=== PATIENT | female | born 1990 | race Caucasian/White ===

== ENCOUNTER 2018-12-05 19:00 | Emergency (ER) | payer OTHER ==
[~2018-12-05] VITALS: Ht 162.6 cm; Wt 81.8 kg
[~2018-12-05 19:00] MED LIST: CIPR500T4 PO; PREN1TAB62 PO
[2018-12-05 19:06] VITALS: Ht 162.6 cm; Wt 81.8 kg
[2018-12-05] MEDS ORDERED: SOD CHLORIDE 0.9% 1,000 ML IV STA (20:07)
--- NOTE | 2018-12-05 20:10 | ERD ---
ER Documentation Chief Complaint Chief Complaint near syncopal episode. 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 Patient does admit to heavy drinking and was drinking today. Per her parents at bedside, they found her on the ground next to her bed. This was witnessed by the patient's son, who alerted her parents. They were able to wake her up. She was not postictal afterwards but generally weak. Patient denies feeling any chest pain, shortness of breath, headache, dizziness, nausea, or vomiting. No recent illnesses. She does state that she has been very stressed lately and has "a lot on my shoulders". No history of syncope. ROS All systems reviewed and are negative except as per history of present illness. Medications Home Meds Reported Medications [Unkown Diabetis Rx] No Conflict Check 12/05/18 Discontinued Reported Medications Vit-Iron Fumarate-FA ( Vitamin Tablet) 1 Each Tablet, 1 TAB PO AM, TAB 08/17/14 Vit-Iron Fumarate-FA ( Vitamin Tablet) 1 Each Tablet, 1 TAB PO DAILY, TAB 07/13/14 Discontinued Scripts Ciprofloxacin Hcl* (Ciprofloxacin Hcl*) 500 Mg Tablet, 500 MG PO BID for 10 Days, TAB Prov:MARY MOFFETT PA-C 09/11/15 Allergies Allergies: Coded Allergies: No Known Allergy (Unverified , 08/17/14) PMhx/Soc Hx Miscellaneous Medical Probl: Yes (DM) Hx Alcohol Use: No Hx Substance Use: No Hx Tobacco Use: No Smoking Status: Never smoker FmHx Family History: No diabetes Physical Exam Vitals Vital Signs Date Temp Pulse Resp B/P (MAP) Pulse Ox O2 O2 Flow FiO2 Time Delivery Rate 12/05/18 98 16 134/86 99 Room Air 22:41 (102) 12/05/18 115 16 135/72 Room Air 20:49 (93) 12/05/18 97.4 112 16 142/83 99 Mask 4.0 19:19 (102) 12/05/18 98.1 120 20 142/93 94 19:06 (109) Physical Exam Const: No acute distress Head: Atraumatic Eyes: Normal Conjunctiva, PERRLA, EOMI ENT: Normal External Ears, Nose and Mouth. No intraoral injury Neck: Full range of motion. No meningismus. Resp: Clear to auscultation bilaterally Cardio: tachycardic with regular rhythm, no murmurs. 2+ distal pulses in all 4 extremities Abd: Soft, non tender, non distended. Normal bowel sounds Skin: No petechiae or rashes Back: No midline or flank tenderness Ext: No cyanosis, or edema Neur: Awake and alert, oriented x3, cranial nerves intact, strength and sensations intact in all 4 extremities. Normal balance. Normal gait. Psych: Normal Mood and Affect Result Diagram: 12/05/18199912/05/181999 Results 24 hrs Laboratory Tests Test 12/05/18 20:00 12/05/18 20:23 12/05/18 20:25 12/05/18 21:04 White Blood Count 8.2 10^3/ul Red Blood Count 4.66 10^6/ul Hemoglobin 12.2 g/dl Hematocrit 36.5 % Mean Corpuscular 78.3 fl Volume Mean Corpuscular 26.2 pg Hemoglobin Mean Corpuscular 33.4 g/dl Hemoglobin Concent Red Cell Distribution 16.4 % Width Platelet Count 262 10^3/UL Mean Platelet Volume 11.4 fl Immature Granulocytes 0.100 % % Neutrophils % 41.2 % Lymphocytes % 48.7 % Monocytes % 6.7 % Eosinophils % 2.1 % Basophils % 1.2 % Nucleated Red Blood 0.0 /100WBC Cells % Immature Granulocytes 0.010 10^3/ul # Neutrophils # 3.4 10^3/ul Lymphocytes # 4.0 10^3/ul Monocytes # 0.6 10^3/ul Eosinophils # 0.2 10^3/ul Basophils # 0.1 10^3/ul Nucleated Red Blood 0.0 10^3/ul Cells # Sodium Level 147 mmol/L Potassium Level 4.3 mmol/L Chloride Level 109 mmol/L Carbon Dioxide Level 24 mmol/L Anion Gap 14 Blood Urea Nitrogen 7 mg/dl Creatinine 0.84 mg/dl Est Glomerular > 60 mL/min Filtrat Rate mL/min Glucose Level 108 mg/dl Calcium Level 8.7 mg/dl POC Beta HCG, NEGATIVE Qualitative Bedside Glucose 99 mg/dL Bedside Urine pH 5.0 (LAB) Bedside Urine Protein Negative (LAB) Bedside Urine Glucose Negative (UA) Bedside Urine Ketones Negative (LAB) Bedside Urine Blood Trace-intact Bedside Urine Nitrite Negative (LAB) Bedside Urine Negative Leukocyte Esterase (L Current Medications Medications Dose Sig/Nick Start Time Status Last (Trade) Ordered Route PRN Stop Time Admin Dose Reason Admin Sodium 1,000 ml @ Q1H STAT 12/05/18 DC 12/05/18 Chloride 1,000 mls/hr IV 20:07 12/05/18 20:19 21:06 Procedures/MDM EMERGENT LABS AND DIAGNOSTIC STUDIES: Lab Results above were reviewed and interpreted by me. CBC: no anemia or evidence of infection CMP: Hypernatremia, likely secondary to dehydration. No evidence of other electrolyte abnormality, renal failure, hypoglycemia negative Urine dip with trace blood only, no evidence of infection or ketosis 12-lead EKG was interpreted by Nena Larose MD: Sinus tachycardia at 117 bpm Normal axis Normal intervals No acute ST or T wave changes suggestive of acute ischemia or STEMI. Radiology Results as interpreted by Radiology below were reviewed by Tre Larose MD: Chest x-ray shows no acute abnormalities Initial Nursing notes reviewed. Previous Medical Records requested via the Electronic Health Record. EMERGENCY DEPARTMENT COURSE / MEDICAL DECISION MAKING: The patients vitals are within normal limits and labs are unremarkable. The ECG did not show any concerning abnormalities. I have a low suspicion for an arrhythmia, acute coronary syndrome, PE or a CVA or intracranial hemorrhage. There was evidence of dehydration and her labs with hypernatremia. This in addition to her alcohol intoxication would be a possible explanation for her syncopal episode. At this moment, etiology for syncope is unknown but likely benign. Patient's syncopal symptoms have stabilized while in the department and are suitable for outpatient follow up. I advised follow up with primary care physician in 1-2 days. Return precautions were discussed at bedside. Patient's blood pressure was elevated (>120/80) but appears stable without evidence of hypertensive emergency or urgency. The patient was counseled about the risks of hypertension and urged to pursue outpatient monitoring and therapy within a week with their primary care physician. Departure Diagnosis: Primary Impression: Syncope Syncope type: unspecified Qualified Codes: R55 - Syncope and collapse Additional Impression: Alcohol intoxication Complication of substance-induced condition: uncomplicated Qualified Codes: F10.920 - Alcohol use, unspecified with intoxication, uncomplicated Condition: Stable JULIAN LAROSE MD Dec 05, 2018 20:10
[2018-12-05] MEDS ORDERED: [UNRECOGNIZED DRUG - REMARK] (21:44)
[2018-12-05 22:41] VITALS: BP 134/86; PULSE 98; RESP 16
== END 2018-12-05 22:42 | disposition home or self-care (01) ==
LOC: E/R 19:00
DX: R55 Syncope and collapse (principal); F10.920 Alcohol use, unspecified with intoxication, uncomplicated; E11.9 Type 2 diabetes mellitus without complications
CPT/HCPCS: 71045; 80048; 81003; 81025; 82962; 85025; J7030; 36415; 93005; 96360; 96361

== ENCOUNTER 2018-12-25 14:46 | Emergency (ER) | payer OTHER ==
[~2018-12-25] VITALS: Ht 160 cm; Wt 100.0 kg
[~2018-12-25 14:46] MED LIST changes: -CIPR500T4 PO; -PREN1TAB62 PO; +[UNRECOGNIZED DRUG - REMARK]
[2018-12-25] MEDS ORDERED: SOD CHLORIDE 0.9% 500 ML IV STA (14:57)
[2018-12-25] MEDS ORDERED: ONDANSETRON 4 MG INJ IV STA (14:57)
--- NOTE | 2018-12-25 15:03 | ERD ---
ER Documentation Chief Complaint Chief Complaint HPI This is a 28-year-old woman with a history of leukemia since she was 14 years ol d, previously treated, brought to the ED for questionable syncopal episode and momentary unresponsiveness while in the ED waiting room. She had a very similar episode in this ED about 3 weeks ago and was found to be intoxicated, she does have a long history of alcohol intoxication and alcohol abuse. Patient admits to drinking heavily today. She states she has a history of seizure disorder but does not take any medications. She denies seizure activity today, she had no tongue injury or tongue biting, no loss of bowel or bladder control, no recent fevers or chills. Patient denies chest pain or shortness of breath, no blood per rectum or melena, no weight loss. ROS All systems reviewed and are negative except as per history of present illness. Medications Home Meds Active Scripts Levetiracetam* (Keppra*) 500 Mg Tablet, 500 MG PO BID, #60 TAB Prov:CHAN DARNELL MD 12/25/18 Discontinued Reported Medications [Unkown Diabetis Rx] No Conflict Check 12/05/18 Allergies Allergies: Coded Allergies: No Known Allergy (Unverified , 12/25/18) PMhx/Soc Hx Miscellaneous Medical Probl: Yes (DM) Hx Alcohol Use: No Hx Substance Use: No Hx Tobacco Use: No FmHx Family History: No diabetes Physical Exam Vitals Vital Signs Date Temp Pulse Resp B/P (MAP) Pulse Ox O2 O2 Flow FiO2 Time Delivery Rate 12/25/18 85 21 94/55 (68) 99 Room Air 18:53 12/25/18 98.3 83 18 99/63 (75) 99 Nasal 2.0 17:26 Cannula 12/25/18 98.4 87 18 115/72 100 15:08 (86) Per nurse's records Physical Exam GENERAL: Well-developed, well-nourished, appears intoxicated with alcohol on breath, afebrile HEENT: Moist mucous membranes, pink conjunctiva, no cervical spine tenderness, no goiter NEURO: Alert and oriented 3, cranial nerves II through XII intact bilaterally, pupils equal round reactive to light, able to ambulate CARDIAC: Regular rate and rhythm, no murmurs rubs or gallops LUNGS: Clear bilaterally no wheezing crackles or stridor ABDOMEN: Soft nontender, no guarding, no rigidity, no rebound, no psoas sign no obturator sign. SKIN: Warm and dry to touch, no abrasions, contusions, or hematomas, no lacerations, no ecchymosis, no target lesions, and without ulcers EXTREMITIES: No clubbing cyanosis or edema, calves are bilaterally symmetrical, no Homans sign, no popliteal cord sign. Distal pulses equal and bilateral PSYCH: Agitated Result Diagram: 12/25/18 1500 12/25/18 1500 Results 24 hrs Laboratory Tests Test 12/25/18 15:00 12/25/18 15:08 12/25/18 15:11 White Blood Count 7.5 10^3/ul Red Blood Count 4.99 10^6/ul Hemoglobin 13.0 g/dl Hematocrit 39.0 % Mean Corpuscular Volume 78.2 fl Mean Corpuscular Hemoglobin 26.1 pg Mean Corpuscular 33.3 g/dl Hemoglobin Concent Red Cell Distribution Width 15.7 % Platelet Count 280 10^3/UL Mean Platelet Volume 10.5 fl Immature Granulocytes % 0.400 % Neutrophils % 48.1 % Lymphocytes % 43.9 % Monocytes % 4.5 % Eosinophils % 1.9 % Basophils % 1.2 % Nucleated Red Blood Cells % 0.0 /100WBC Immature Granulocytes # 0.030 10^3/ul Neutrophils # 3.6 10^3/ul Lymphocytes # 3.3 10^3/ul Monocytes # 0.3 10^3/ul Eosinophils # 0.1 10^3/ul Basophils # 0.1 10^3/ul Nucleated Red Blood Cells # 0.0 10^3/ul Sodium Level 148 mmol/L Potassium Level 3.6 mmol/L Chloride Level 112 mmol/L Carbon Dioxide Level 21 mmol/L Anion Gap 15 Blood Urea Nitrogen 6 mg/dl Creatinine 0.60 mg/dl Est Glomerular Filtrat > 60 mL/min Rate mL/min Glucose Level 128 mg/dl Calcium Level 8.8 mg/dl Total Bilirubin 0.2 mg/dl Direct Bilirubin 0.00 mg/dl Indirect Bilirubin 0.2 mg/dl Aspartate Amino 96 IU/L Transf (AST/SGOT) Alanine 92 IU/L Aminotransferase (ALT/SGPT) Alkaline Phosphatase 143 IU/L Total Protein 9.1 g/dl Albumin 4.6 g/dl Globulin 4.50 g/dl Albumin/Globulin Ratio 1.02 Salicylates Level < 1.0 mg/dl Acetaminophen Level < 10.0 ug/ml Ethyl Alcohol Level 378.0 mg/dl Urine Color STRAW Urine Clarity CLEAR Urine pH 6.0 Urine Specific [place] 1.002 Urine Ketones NEGATIVE mg/dL Urine Nitrite NEGATIVE mg/dL Urine Bilirubin NEGATIVE mg/dL Urine Urobilinogen NEGATIVE mg/dL Urine Leukocyte Esterase NEGATIVE Gianna/ul Urine Microscopic RBC 0 /HPF Urine Microscopic WBC 0 /HPF Urine Bacteria FEW /HPF Urine Hemoglobin 1+ mg/dL Urine Glucose NEGATIVE mg/dL Urine Total Protein NEGATIVE mg/dl Urine Opiates Screen Negative Urine Barbiturates Negative Urine Amphetamines Screen Negative Urine Benzodiazepines Screen Negative Urine Cocaine Screen Negative Urine Cannabinoids Negative POC Beta HCG, Qualitative NEGATIVE Current Medications Medications Dose Sig/Nick Start Time Status Last (Trade) Ordered Route PRN Stop Time Admin Dose Reason Admin Sodium 500 ml @ Q1H STAT 12/25/18 DC 12/25/18 Chloride 500 mls/hr IV 14:57 15:15 12/25/18 15:56 Ondansetron 4 mg ONCE STAT 12/25/18 DC 12/25/18 HCl (Zofran IV 14:57 15:15 Inj) 12/25/18 15:05 Lorazepam 1 mg ONCE ONCE 12/25/18 DC 12/25/18 (Ativan) IV 17:00 17:23 12/25/18 17:01 Procedures/MDM IV line was established patient was placed on quality assurance monitor final rhythm strip revealed a sinus rhythm at about 90 bpm with upright P and T waves. Patient was afebrile. Blood sugar was normal. EKG performed, read by me: 94 bpm, normal sinus rhythm, normal axis, no acute ST segment changes, narrow QRS complex, with good R-wave progression in precordial leads. Chest X-ray 1V Interpreted by me: Soft Tissue: No acute abnormalities Bones: No acute abnormalities Mediastinum/Cardiac Silhouette/Lungs: Cardiomegaly, I do not suspect per icardial effusion CT scan of the brain was negative for acute bleed mass or shift I administered 500 cc normal saline IV and Zofran 4 mg IV, I later administered lorazepam 1 mg IV x1. CBC was unremarkable, electrolytes within normal limits, liver function tests revealed transaminitis consistent with alcoholic liver disease, drug screen negative, test negative, ethanol level elevated at 378 consistent with her presentation. Urinalysis was negative for infection. Observation Note: Time: 5 hours Family Hx: No Hypertension Evaluation: Multiple exams showed improving symptoms and no evidence of decreased mental status or intractable seizures. Patient's vital signs remain normal and her mental status is within normal limits, she will be discharged with instructions and guidelines for follow-up and outpatient management, I referred her to alcoholic detox facility in [facility] [place]. Differential diagnoses considered, included but not limited to acute coronary syndrome, pulmonary embolism, aortic dissection, abdominal aortic aneurysm, sepsis, stroke, meningitis, encephalitis, pneumonia, appendicitis, cholecystitis, bowel obstruction, pyelonephritis, nephrolithiasis, cystitis, as well as metabolic, hematologic, and electrolyte abnormalities. As well as abscess, cellulitis, fractures, and dislocations. Patient feels much better at this time, and vital signs are normal, symptoms have improved. I did give strict instructions to return to the ED if symptoms co ntinue or worsen, patient will otherwise follow-up with primary care physician. Patient understood instructions and agreed to plan. Disclaimer: Inadvertent spelling and grammatical errors are likely due to EHR/dictation software use and do not reflect on the overall quality of patient care. Also, please note that the electronic time recorded on this note does not necessarily reflect the actual time of the patient encounter. Departure Diagnosis: Primary Impression: Alcohol abuse Additional Impression: Alcohol withdrawal seizure Complication of substance-induced condition: uncomplicated Qualified Codes: F10.230 - Alcohol dependence with withdrawal, uncomplicated Ruled Out: Alcoholic intoxication Condition: CHAN Fleming MD Dec 25, 2018 15:03
[2018-12-25 15:08] VITALS: Ht 160 cm; Wt 100.0 kg
[2018-12-25] MEDS ORDERED: LORAZEPAM 2 MG INJ IV ONE (17:00)
[2018-12-25] MEDS ORDERED: LEVE-5 PO (17:43)
[2018-12-25 18:53] VITALS: BP 94/55; PULSE 85; RESP 21
== END 2018-12-25 18:55 | disposition home or self-care (01) ==
LOC: E/R 14:46
DX: F10.10 Alcohol abuse, uncomplicated (principal); E11.9 Type 2 diabetes mellitus without complications; R41.82 Altered mental status, unspecified
CPT/HCPCS: 36415; 71045; 80053; 80307; 81001; 81025; 85025; 93005; 96374; 96375; J2060; J2405; J7040; Z7502; Z7610

== ENCOUNTER 2019-01-03 16:51 | Emergency (ER) | payer OTHER ==
[~2019-01-03] VITALS: Ht 162.6 cm; Wt 86.4 kg
[~2019-01-03 16:51] MED LIST changes: +LEVE-5 PO; -[UNRECOGNIZED DRUG - REMARK]
[2019-01-03] MEDS ORDERED: LORAZEPAM 2 MG INJ ONE (16:57)
[2019-01-03] MEDS ORDERED: SOD CHLORIDE 0.9% 1,000 ML IV STA (17:09)
[2019-01-03 17:21] VITALS: Ht 162.6 cm; Wt 86.4 kg
[2019-01-03] MEDS ORDERED: LORAZEPAM 2 MG INJ IV ONE (17:30)
[2019-01-03] MEDS ORDERED: LEVETIRACETAM 1000 MG (PMX) 100 ML IVPB ONE (18:30)
--- NOTE | 2019-01-03 23:21 | ERD ---
ER Documentation Chief Complaint Chief Complaint SEIZURE EPISODE.HX OF SEIZURE.VERSED GIVEN 5 MG IN THE FIELD HPI 28-year-old female with a history of seizure disorder presenting with an episode of seizure while with her family today. She took her medications prior to her having a seizure. She was given 5 mg of Versed IM in the field. However she had about 2 more seizures while in the ambulance and was actively seizing upon arrival. Her [id number] is with her at this time and is giving the history of events. 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 No pallor. Lids, lashes, and conjunctiva clear. ENT: Mucous membranes moist. No erythema or tonsillar exudates. Airway patent. No evidence of oral trauma. NECK: No swelling RESPIRATORY: When patient was postictal, clear to auscultation bilaterally. No retractions or wheezing CV: Tachycardic with regular rhythm. No murmurs, No rubs or gallops. ABDOMEN: Soft, non-distended EXTREMITIES: No edema. No clubbing or cyanosis. Pulses symmetric. No deficits or delays. SKIN: Warm and dry. Decreased turgor. No obvious rash, petechiae or purpura. NEUROLOGIC: Seizure-like activity, whole body jerking movements. Result Diagram: 01/03/19 1708 01/03/19 1708 Results 24 hrs Laboratory Tests Test 01/03/19 17:08 01/03/19 18:19 White Blood Count 5.6 10^3/ul Red Blood Count 4.53 10^6/ul Hemoglobin 11.7 g/dl Hematocrit 34.7 % Mean Corpuscular Volume 76.6 fl Mean Corpuscular Hemoglobin 25.8 pg Mean Corpuscular Hemoglobin Concent 33.7 g/dl Red Cell Distribution Width 15.6 % Platelet Count 204 10^3/UL Mean Platelet Volume 11.0 fl Immature Granulocytes % 0.200 % Neutrophils % 47.8 % Lymphocytes % 40.4 % Monocytes % 8.8 % Eosinophils % 1.4 % Basophils % 1.4 % Nucleated Red Blood Cells % 0.0 /100WBC Immature Granulocytes # 0.010 10^3/ul Neutrophils # 2.7 10^3/ul Lymphocytes # 2.2 10^3/ul Monocytes # 0.5 10^3/ul Eosinophils # 0.1 10^3/ul Basophils # 0.1 10^3/ul Nucleated Red Blood Cells # 0.0 10^3/ul Urine Color STRAW Urine Clarity CLEAR Urine pH 5.0 Urine Specific [place] 1.003 Urine Ketones NEGATIVE mg/dL Urine Nitrite NEGATIVE mg/dL Urine Bilirubin NEGATIVE mg/dL Urine Urobilinogen NEGATIVE mg/dL Urine Leukocyte Esterase NEGATIVE Gianna/ul Urine Hemoglobin NEGATIVE mg/dL Urine Glucose NEGATIVE mg/dL Urine Total Protein NEGATIVE mg/dl Sodium Level 142 mmol/L Potassium Level 3.7 mmol/L Chloride Level 107 mmol/L Carbon Dioxide Level 21 mmol/L Anion Gap 14 Blood Urea Nitrogen 6 mg/dl Creatinine 0.68 mg/dl Est Glomerular Filtrat Rate mL/min > 60 mL/min Glucose Level 94 mg/dl Bedside Glucose 92 mg/dL Calcium Level 8.5 mg/dl Serum HCG, Qualitative NEGATIVE Urine Opiates Screen Negative Urine Barbiturates Negative Urine Amphetamines Screen Negative Urine Benzodiazepines Screen Positive Urine Cocaine Screen Negative Urine Cannabinoids Negative Ethyl Alcohol Level 281.0 mg/dl POC Beta HCG, Qualitative NEGATIVE Current Medications Medications Dose Sig/Nick Start Time Status Last (Trade) Ordered Route PRN Stop Time Admin Dose Reason Admin Sodium 1,000 ml @ Q1H STAT 01/03/19 DC 01/03/19 Chloride 1,000 mls/hr IV 17:09 17:36 01/03/19 18:08 Lorazepam 2 mg ONCE ONCE 01/03/19 DC 01/03/19 (Ativan) IV 17:30 17:37 01/03/19 17:31 100 ml @ ONCE ONCE 01/03/19 DC 01/03/19 Levetiracetam 400 mls/hr IVPB 18:30 18:37 01/03/19 18:44 Procedures/MDM EMERGENT LABS AND DIAGNOSTIC STUDIES: Lab Results above were reviewed and interpreted by me. CBC: Mild anemia, no evidence of infection BMP: No evidence of electrolyte abnormality, renal failure, hypoglycemia Urine drug screen positive for benzos Alcohol level significantly elevated, consistent with acute alcohol intoxication negative UA: no evidence of infection 12-lead EKG was interpreted by Nena Larose MD: Sinus tachycardia 104 bpm Normal axis Normal intervals No acute ST or T wave changes suggestive of acute ischemia or STEMI. Initial Nursing notes reviewed. Previous Medical Records requested via the Electronic Health Record. EMERGENCY DEPARTMENT COURSE / MEDICAL DECISION MAKING: Patient presented with acute breakthrough seizure. Per her family, who later arrived at bedside, patient did not take her medications for 2 days. She was treated with 10 mg of IV Ativan while here without any recurrent seizures. She was given Keppra IV dose as well. Her labs did not show any significant abnormalities. I have a low suspicion for acute intracranial hemorrhage, stro ke, meningitis, encephalitis, sepsis. Patient did wake up several times and speak to her family and to the bedside nurse and was oriented without any confusion or focal deficits. When I reevaluated the patient at the end of my shift, she still was very somnolent and wanted to sleep. I do not feel that she is completely sober yet and is not safe for discharge. She will be signed out to the oncoming ED physician. Once she is more sober and able to walk, she may be discharged. Departure Diagnosis: Primary Impression: Alcohol intoxication Complication of substance-induced condition: uncomplicated Qualified Codes: F10.920 - Alcohol use, unspecified with intoxication, uncomplicated Additional Impression: Seizure Condition: Stable Patient Instructions: Seizure, Recurrent [Adult], Alcohol Abuse JULIAN LAROSE MD Jan 03, 2019 23:21
--- NOTE | 2019-01-03 23:22 | EN ---
Date/Time of Note Date/Time of Note DATE: 01/03/19 TIME: 23:20 ER Progress Note Sign Out Note: Dr. Larose Relayed current data and ongoing care with me. Time: Time of this note Primary Provider: Lachelle Diagnosis: seizure Pending: Reassessment. Patient was able to ambulate with a steady gait, she complained of chest pressure, repeat EKG showed no acute changes, she has not had any evidence of hypoxia, at this point I do not suspect pulmonary embolism, she has no coronary disease risk factors, she feels comfortable going home, at discharge she was in no acute distress. CHAN WHALEY MD Jan 03, 2019 23:22
[2019-01-03 23:25] VITALS: BP 141/88; PULSE 96; RESP 20
== END 2019-01-03 23:35 | disposition home or self-care (01) ==
LOC: E/R 16:51
DX: F10.920 Alcohol use, unspecified with intoxication, uncomplicated (principal); E11.9 Type 2 diabetes mellitus without complications
CPT/HCPCS: 80048; 80307; 81003; 81025; 82962; 84703; 85025; 93005; J1953; J7030; 36415; 96374; 96375; J2060